=== PATIENT | female | born 1955 | race Caucasian/White ===

== ENCOUNTER 2022-06-17 15:10 | Emergency (ER) | payer MEDICAID, SELFPAY ==
--- NOTE | 2022-06-17 | ECG_ITS ---
Test Reason : HYPERTENSION Blood Pressure : / mmHG Vent. Rate : 063 BPM Atrial Rate : 063 BPM P-R Int : 134 ms QRS Dur : 064 ms QT Int : 420 ms P-R-T Axes : 073 -21 034 degrees QTc Int : 429 ms Normal sinus rhythm Minimal voltage criteria for LVH, may be normal variant ( R in aVL ) Borderline ECG When compared to the previous EKG of No significant changes seen Referred By: Generic ED Physician Electronically Signed By:YOSEF WANG MD
[2022-06-17 16:27] VITALS: BP 167/91; PULSE 65; RESP 18; TEMP 36; O2SAT 95; BMI 27.0
--- NOTE | 2022-06-17 16:32 | ED_ITS ---
HPI - General Adult General Chief complaint: General Medical <GALILEA Colon - Last Filed: 06/17/22 20:08> Stated complaint: High BP <GALILEA Colon - Last Filed: 06/17/22 20:08> Time Seen by Provider: 06/18/22 00:38 <GALILEA Colon - Last Filed: 06/17/22 20:08> Source: patient <Andrey Lepe MD - Last Filed: 06/18/22 05:53> Mode of arrival: ambulatory <Andrey Lepe MD - Last Filed: 06/18/22 05:53> Limitations: no limitations <Andrey Lepe MD - Last Filed: 06/18/22 05:53> History of Present Illness HPI narrative: Patient's history of hypertension, CVA came from [place] visiting family unable to get her medication shows she is taking her 's medication for blood pressure for last few weeks today was 195/107 patient otherwise asymptomatic no chest pain no palpitation no headache no nausea or vomiting <Andrey Lepe MD - Last Filed: 06/18/22 05:53> Related Data Home medications: Previous Rx's Medication Instructions Recorded amlodipine 5 mg-olmesartan 20 mg 1 tab PO DAILY #30 tabs 06/18/22 tablet aspirin 81 mg chewable tablet 81 mg PO DAILY #30 tabs 06/18/22 clopidogrel 75 mg tablet (Plavix) 75 mg PO DAILY #30 tabs 06/18/22 escitalopram oxalate 20 mg tablet 20 mg PO DAILY #30 tabs 06/18/22 <GALILEA Colon - Last Filed: 06/17/22 20:08> Allergies/adverse reactions: Allergies Allergy/AdvReac Type Severity Reaction Status Date / Time No Known Allergies Allergy Verified 06/17/22 16:27 [No Known Allergies*] <GALILEA Colon - Last Filed: 06/17/22 20:08> Review of Systems Review of Systems: Yes all other systems are reviewed and are negative <Andrey Lepe MD - Last Filed: 06/18/22 05:53> PMFSH Social History Social History: Social History Advance Directives: No Advance Directives Information Provided: Yes <GALILEA Colon - Last Filed: 06/17/22 20:08> Physical Exam ED Vital Signs: Vital Signs - 24 hr 06/17/22 16:27 06/17/22 20:07 06/18/22 00:58 Temperature 96.8 F Pulse Rate 65 68 66 Respiratory Rate 18 18 17 Blood Pressure 167/91 H 198/98 H 179/93 H Pulse Oximetry 95 96 94 Oxygen Delivery Method Room Air Room Air BMI result Body Mass Index 27.0 <GALILEA Colon - Last Filed: 06/17/22 20:08> Vital Signs - 24 hr 06/17/22 16:27 06/17/22 20:07 06/18/22 00:58 Temperature 96.8 F Pulse Rate 65 68 66 Respiratory Rate 18 18 17 Blood Pressure 167/91 H 198/98 H 179/93 H Pulse Oximetry 95 96 94 Oxygen Delivery Method Room Air Room Air BMI result Body Mass Index 27.0 <Andrey Lepe MD - Last Filed: 06/18/22 05:53> Appearance: Alert. Oriented X3. No acute distress. Eyes: PERRLA, No Nystagmus ENT: Pharynx normal. Oral Mucosa moist Neck: Normal inspection. Neck supple. CVS: Normal heart rate and rhythm. Pulses normal. Respiratory: No respiratory distress. Equal air entry bilateral, no wheezing/rales/rhonchi Abdomen: Soft and nontender. Bowel sounds are present, no mass palpable, no CVA tenderness Skin: Skin warm and dry. Normal skin color. Normal skin turgor. Extremities: No lower extremity edema. No calf tenderness Neuro: Oriented X 3. Right-sided residual weakness No sensory deficit.No cerebellar signs , cranial nerves II-XII intact <Andrey Lepe MD - Last Filed: 06/18/22 05:53> Course Course Course Narrative: RME - 66 yo female with history of HTN presents to the ER for evaluation of elevated BP at home 190/100 today, associated with headache. She reports BP was normal yesterday. She has not been taking all of her BP meds due to cost. BP 160s/90s Plan: labs, EKG, tylenol for headache. <GALILEA Colon - Last Filed: 06/17/22 20:08> Reevaluation(s) Reevaluation #1: BP repeated 198/95. she is due for nighttime meds per her daughter, she does not have them and needs new rx. <GALILEA Colon - Last Filed: 06/17/22 20:08> Medications Administered Discontinued Medications Generic Name Dose Route Start Last Admin Trade Name Freq PRN Reason Stop Dose Admin Amlodipine Besylate 5 mg 06/18/22 00:52 06/18/22 00:59 Amlodipine Besylate 5 Mg Tablet PO 06/18/22 00:53 5 mg ONCE ONE Administration Protocol <GALILEA Colon - Last Filed: 06/17/22 20:08> Medications Administered Discontinued Medications Generic Name Dose Route Start Last Admin Trade Name Freq PRN Reason Stop Dose Admin Amlodipine Besylate 5 mg 06/18/22 00:52 06/18/22 00:59 Amlodipine Besylate 5 Mg Tablet PO 06/18/22 00:53 5 mg ONCE ONE Administration Protocol <Andrey Lepe MD - Last Filed: 06/18/22 05:53> Medical Decision Making Medical Decision Making MDM Narrative: Patient history of hypertension taking her 's medication to control her blood pressure last 2 weeks on arrival patient blood pressure 179/93 otherwise patient is symptomatic [place] to refill the medication which were refilled 1 dose of amlodipine 5 mg was given labs are stable will discharge patient home patient does have appointment with PCP in next week <Andrey Lepe MD - Last Filed: 06/18/22 05:53> Lab Data MDM Lab Attestation statement: I reviewed the patient's lab results. <Andrey Lepe MD - Last Filed: 06/18/22 05:53> Result Diagrams: 06/17/22 16:55 06/17/22 16:55 <GALILEA Colon - Last Filed: 06/17/22 20:08> Labs: Lab Results 06/17/22 06/17/22 06/17/22 Range/Units 16:55 16:55 16:55 WBC 8.0 (4.8-10.8) X10*3/uL RBC 5.21 (4.20-5.50) X10*6/uL Hgb 14.3 (12.0-16.0) g/dl Hct 45.0 (37.0-47.0) % MCV 86.4 (80.0-98.0) fL MCH 27.4 (27.0-33.0) pg MCHC 31.8 (31.0-35.0) g/dl RDW 13.6 (11.0-16.0) % Plt Count 264 (160-400) X10*3/uL MPV 9.3 L (9.4-12.3) fL Immature Gran % (Auto) 0.3 (0.0-0.4) % Neut % (Auto) 55.3 (45-73) % Lymph % (Auto) 36.2 (20-40) % [place] % (Auto) 4.9 (2-11) % Eos % (Auto) 2.4 (0-4) % Baso % (Auto) 0.9 (0-2) % Lymph # (Auto) 2.9 (1.2-4.9) X10*3/uL [place] # (Auto) 0.4 (0.1-1.2) X10*3/uL Eos # (Auto) 0.2 (0.0-0.4) X10*3/uL Baso # (Auto) 0.1 (0.0-0.2) X10*3/uL Abs Immat Gran (auto) 0.02 (0.00-0.03) X10*3/uL Absolute Neuts (auto) 4.4 (2.0-8.3) x10*3/uL Absolute Nucleated RBC 0.000 (0.0-0.012) X10*3/uL Nucleated RBC % (auto) 0.0 (0.0-0.2) /100WBC Sodium 140 (135-145) mmol/L Potassium 4.1 (3.3-5.1) mmol/L Chloride 107 (96-108) mmol/L Carbon Dioxide 26 (22-29) mmol/L Anion Gap 11 L (12-20) BUN 13 (9-16) mg/dL Creatinine 0.82 (0.5-1.4) mg/dL Estim Creat Clear Calc 60.7 Estimated GFR > 60 Random Glucose 89 (60-115) mg/dL Calcium 9.2 (8.4-10.2) mg/dL Total Bilirubin 0.7 (0.0-1.0) mg/dL AST 15 (5-31) U/L ALT 14 (0-31) U/L Alkaline Phosphatase 91 (39-117) U/L Troponin I High Sens < 2.7 (<3.5-17.0) ng/L Total Protein 7.2 (6.5-8.0) g/dL Albumin 4.0 (3.5-5.0) g/dL <GALILEA Colon - Last Filed: 06/17/22 20:08> Lab Results 06/17/22 06/17/22 06/17/22 Range/Units 16:55 16:55 16:55 WBC 8.0 (4.8-10.8) X10*3/uL RBC 5.21 (4.20-5.50) X10*6/uL Hgb 14.3 (12.0-16.0) g/dl Hct 45.0 (37.0-47.0) % MCV 86.4 (80.0-98.0) fL MCH 27.4 (27.0-33.0) pg MCHC 31.8 (31.0-35.0) g/dl RDW 13.6 (11.0-16.0) % Plt Count 264 (160-400) X10*3/uL MPV 9.3 L (9.4-12.3) fL Immature Gran % (Auto) 0.3 (0.0-0.4) % Neut % (Auto) 55.3 (45-73) % Lymph % (Auto) 36.2 (20-40) % [place] % (Auto) 4.9 (2-11) % Eos % (Auto) 2.4 (0-4) % Baso % (Auto) 0.9 (0-2) % Lymph # (Auto) 2.9 (1.2-4.9) X10*3/uL [place] # (Auto) 0.4 (0.1-1.2) X10*3/uL Eos # (Auto) 0.2 (0.0-0.4) X10*3/uL Baso # (Auto) 0.1 (0.0-0.2) X10*3/uL Abs Immat Gran (auto) 0.02 (0.00-0.03) X10*3/uL Absolute Neuts (auto) 4.4 (2.0-8.3) x10*3/uL Absolute Nucleated RBC 0.000 (0.0-0.012) X10*3/uL Nucleated RBC % (auto) 0.0 (0.0-0.2) /100WBC Sodium 140 (135-145) mmol/L Potassium 4.1 (3.3-5.1) mmol/L Chloride 107 (96-108) mmol/L Carbon Dioxide 26 (22-29) mmol/L Anion Gap 11 L (12-20) BUN 13 (9-16) mg/dL Creatinine 0.82 (0.5-1.4) mg/dL Estim Creat Clear Calc 60.7 Estimated GFR > 60 Random Glucose 89 (60-115) mg/dL Calcium 9.2 (8.4-10.2) mg/dL Total Bilirubin 0.7 (0.0-1.0) mg/dL AST 15 (5-31) U/L ALT 14 (0-31) U/L Alkaline Phosphatase 91 (39-117) U/L Troponin I High Sens < 2.7 (<3.5-17.0) ng/L Total Protein 7.2 (6.5-8.0) g/dL Albumin 4.0 (3.5-5.0) g/dL <Andrey Lepe MD - Last Filed: 06/18/22 05:53> Discharge Plan Discharge Clinical Impression: Hypertension <GALILEA Colon - Last Filed: 06/17/22 20:08> Patient Disposition: Home, Self-Care <GALILEA Colon - Last Filed: 06/17/22 20:08> Instructions: Chronic Hypertension (DC) <GALILEA Colon - Last Filed: 06/17/22 20:08> Additional Instructions: Take medication daily on time The normal blood pressure should be less than 140/90 Follow-up with PCP <GALILEA Colon - Last Filed: 06/17/22 20:08> Prescriptions: New amlodipine-olmesartan 5-20 mg tablet 1 tab PO DAILY Qty: 30 2RF clopidogrel [Plavix] 75 mg tablet 75 mg PO DAILY Qty: 30 2RF aspirin 81 mg tablet,chewable 81 mg PO DAILY Qty: 30 2RF escitalopram oxalate 20 mg tablet 20 mg PO DAILY Qty: 30 2RF <GALILEA Colon - Last Filed: 06/17/22 20:08> Interventions: ED Discharge Assessment Last Done: 06/18/22 01:22 <GALILEA Colon - Last Filed: 06/17/22 20:08> Discharge Date/Time: 06/18/22 01:23 <GALILEA Colon - Last Filed: 06/17/22 20:08>
[2022-06-17 17:05] LABS: MANUAL DIFF FLAG NO
[2022-06-17 17:08] LABS: Basophils Absolute Auto 0.1 X10*3/uL (0.0-0.2); Basophils Percent Auto 0.9 % (0-2); Eosinophils Absolute Auto 0.2 X10*3/uL (0.0-0.4); Eosinophils Percent Auto 2.4 % (0-4); Hemoglobin 14.3 g/dl (12.0-16.0); Imm Gran Abs Auto 0.02 X10*3/uL (0.00-0.03); Imm Gran Pct Auto 0.3 % (0.0-0.4); Lymphocytes Absolute Auto 2.9 X10*3/uL (1.2-4.9); Lymphocytes Percent Auto 36.2 % (20-40); Mean Corpuscular HGB Conc 31.8 g/dl (31.0-35.0); Mean Corpuscular Hemoglobin 27.4 pg (27.0-33.0); Mean Corpuscular Volume 86.4 fL (80.0-98.0); Mean Platelet Volume 9.3 fL (9.4-12.3); Monocytes Absolute Auto 0.4 X10*3/uL (0.1-1.2); Monocytes Percent Auto 4.9 % (2-11); Neutrophils Absolute Auto 4.4 x10*3/uL (2.0-8.3); Neutrophils Percent Auto 55.3 % (45-73); Platelet Count 264 X10*3/uL (160-400); Red Blood Count 5.21 X10*6/uL (4.20-5.50); Red Cell Distribution Width 13.6 % (11.0-16.0)
[2022-06-17 17:22] LABS: Alanine Aminotransferase 14 U/L (0-31); Alkaline Phosphatase 91 U/L (39-117); Anion Gap 11 (12-20); Aspartate Amino Transferase 15 U/L (5-31); Bilirubin Total 0.7 mg/dL (0.0-1.0); Blood Urea Nitrogen 13 mg/dL (9-16); Calcium 9.2 mg/dL (8.4-10.2); Carbon Dioxide 26 mmol/L (22-29); Chloride 107 mmol/L (96-108); Creatinine Clr Calc Pharmacy 60.7; Estimated Glomerular Filt Rate > 60; Glucose Random 89 mg/dL (60-115); Potassium 4.1 mmol/L (3.3-5.1); Sodium 140 mmol/L (135-145); Total Protein 7.2 g/dL (6.5-8.0)
[2022-06-17 17:30] LABS: Troponin-I High Sensitivity < 2.7 ng/L (<3.5-17.0)
[2022-06-17 20:07] VITALS: BP 198/98; PULSE 68; RESP 18; O2SAT 96
[2022-06-18 00:58] VITALS: BP 179/93; PULSE 66; RESP 17; O2SAT 94
[2022-06-18] MEDS: amLODIPine Besylate 5 MG TABLET PO (00:59)
== END 2022-06-18 01:23 | disposition home or self-care (01) ==
PROVIDERS: Emergency Provider Internal Medicine; PCP Nurse Practitioner Family
DX: I10 Essential (primary) hypertension (principal); R94.31 Abnormal electrocardiogram [ECG] [EKG]; Z79.899 Other long term (current) drug therapy
CPT/HCPCS: 36415; 80053; 84484; 85025; 93005; 99283

== ENCOUNTER 2022-07-18 08:01 | Outpatient (REF) | payer MEDICAID, SELFPAY ==
[2022-07-18 08:16] LABS: MANUAL DIFF FLAG NO
[2022-07-18 09:55] LABS: Basophils Absolute Auto 0.1 X10*3/uL (0.0-0.2); Basophils Percent Auto 1.4 % (0-2); Eosinophils Absolute Auto 0.2 X10*3/uL (0.0-0.4); Eosinophils Percent Auto 3.6 % (0-4); Hematocrit 46.8 % (37.0-47.0); Hemoglobin 14.9 g/dl (12.0-16.0); Imm Gran Abs Auto 0.03 X10*3/uL (0.00-0.03); Imm Gran Pct Auto 0.5 % (0.0-0.4); Lymphocytes Absolute Auto 2.7 X10*3/uL (1.2-4.9); Lymphocytes Percent Auto 46.7 % (20-40); Mean Corpuscular HGB Conc 31.8 g/dl (31.0-35.0); Mean Corpuscular Hemoglobin 27.9 pg (27.0-33.0); Mean Corpuscular Volume 87.6 fL (80.0-98.0); Monocytes Absolute Auto 0.4 X10*3/uL (0.1-1.2); Monocytes Percent Auto 6.5 % (2-11); Neutrophils Absolute Auto 2.4 x10*3/uL (2.0-8.3); Neutrophils Percent Auto 41.3 % (45-73); Platelet Count 260 X10*3/uL (160-400); Red Blood Count 5.34 X10*6/uL (4.20-5.50); Red Cell Distribution Width 13.4 % (11.0-16.0); White Blood Count 5.8 X10*3/uL (4.8-10.8)
[2022-07-18 10:48] LABS: Alanine Aminotransferase 15 U/L (0-31); Albumin Level 4.1 g/dL (3.5-5.0); Alkaline Phosphatase 86 U/L (39-117); Anion Gap 11 (12-20); Aspartate Amino Transferase 13 U/L (5-31); Bilirubin Total 0.7 mg/dL (0.0-1.0); Blood Urea Nitrogen 13 mg/dL (9-16); Calcium 9.3 mg/dL (8.4-10.2); Carbon Dioxide 27 mmol/L (22-29); Chloride 108 mmol/L (96-108); Cholesterol 184 mg/dL; Estimated Glomerular Filt Rate 57; Glucose Fasting 87 mg/dL (60-99); HDL Cholesterol 42 mg/dL; LDL Cholesterol Calculated 111 mg/dl; Potassium 4.4 mmol/L (3.3-5.1); Sodium 142 mmol/L (135-145); Total Protein 7.3 g/dL (6.5-8.0); Triglycerides 157 mg/dL
[2022-07-18 11:02] LABS: Folate 9.2 ng/mL (> or = 4.0); TSH reflex Free T4 1.17 uIU/mL (0.32-4.0); Vitamin B12 866 pg/mL (200-900); Vitamin D 25-OH Total 36.4 ng/mL (>30)
== END 2022-07-18 08:02 | disposition home or self-care (01) ==
LOC: HO.LAB 08:01
PROVIDERS: PCP Nurse Practitioner Family; Visit Provider Nurse Practitioner Family
DX: I10 Essential (primary) hypertension (principal); Z76.89 Persons encountering health services in other specified circumstances
CPT/HCPCS: 36415; 80053; 80061; 82306; 82607; 82746; 84443; 85025